=== PATIENT | male | born 1945 | race Two or more races ===

== ENCOUNTER 2022-05-04 13:14 | Emergency (ER) | payer MEDICARE, OTHER ==
[~2022-05-04] VITALS: Ht 165.1 cm; Wt 91.0 kg
[2022-05-04] MEDS ORDERED: cloNIDine HCL 0.1 MG TAB PO ONE (14:45)
[2022-05-04] MEDS ORDERED: LISI20TA28 PO (14:46)
[2022-05-04 15:32] VITALS: BP 193/88
== END 2022-05-04 16:20 | disposition home or self-care (01) ==
LOC: ER 13:14
DX: I16.0 Hypertensive urgency (principal); E11.9 Type 2 diabetes mellitus without complications; Z91.013 Allergy to seafood
CPT/HCPCS: 70450; 93005